=== PATIENT | female | born 1985 | race Caucasian/White ===

== ENCOUNTER 2024-09-18 20:49 | Emergency (ER) | payer BC, SELFPAY ==
[2024-09-18 20:51] VITALS: BP 135/97
[2024-09-18 22:00] VITALS: BP 129/85
[2024-09-18] MEDS: ZOFRAN 4 MG IV ×2 (22:15→23:39)
[2024-09-18] MEDS: NSS 1000 IV (22:16)
[2024-09-18 22:22] LABS: % Basophils 0.4 % (0-2); % Immature Granulocytes 0.2 % (0-0.5); % Lymphocytes 14.8 % (20.5-51.1); % Neutrophils 76.6 % (42.2-75.2); Absolute Lymphocytes 1.2 10^3/uL (1.2-3.4); Absolute Monocytes 0.7 10^3/uL (0.1-0.6); Absolute Neutrophils 6.2 10^3/uL (1.4-6.5); Hematocrit 42.7 % (37.0-47.0); Hemoglobin 14.9 g/dL (12.0-16.0); Mean Corp Hgb Conc. 34.9 g/dL (33.0-37.0); Mean Corpuscular Hgb 29.7 pg (27.0-31.0); Mean Corpuscular Volume 85.2 fL (81.0-99.0); Mean Platelet Volume 9.3 fL (7.4-10.4); Nucleated Red Blood Cells % 0 %; Platelet Count 268 10^3/uL (130-400); Red Blood Cell Count 5.01 10^6/uL (4.20-5.40); Red Cell Dist. Width 12.6 % (11.5-14.5); White Blood Cell Count 8.1 10^3/uL (4.8-10.8)
[2024-09-18 22:32] LABS: ALT (SGPT) 17 U/L (0-35); AST (SGOT) 17 U/L (14-36); Albumin 4.3 g/dl (3.5-5.0); Alkaline Phosphatase 100 U/L (38-126); Blood Urea Nitrogen 15 mg/dl (7-17); Calcium 9.1 mg/dl (8.4-10.2); Carbon Dioxide 25 mmol/L (22-30); Chloride 105 mmol/L (98-107); Glucose 99 mg/dl (70-99); Lipase 40 U/L (23-300); Potassium 3.2 mmol/L (3.5-5.1); Sodium 139 mmol/L (135-145); Total Bilirubin 0.6 mg/dl (0.2-1.3); Total Protein 7.3 g/dl (6.3-8.2); eGFR > 60.00
--- NOTE | 2024-09-18 22:38 | ED.GENMED ---
History of Present Illness
<Devang Chaves, DO - Last Filed: 09/18/24 22:39>
General
Chief Complaint: Abdominal Pain
Time Seen by Provider: 09/18/24 21:32
<Joselyn Hull, CATERING ASSOCIATE - Last Filed: 09/19/24 00:57>
General
Source: patient
Exam Limitations: none
Nursing documentation reviewed up to this point in time: agreed with
History of Present Illness
History of Present Illness:
39 yo female with no PMHX, 2020, presents for nausea, diarrhea, abdominal bloating past 4 days. Non bloody watery diarrhea. Burps 'taste horrible.' No known sick contacts.
Past History
<Joselyn Hull, CATERING ASSOCIATE - Last Filed: 09/19/24 00:57>
Past History
ED Past Medical History: None
ED Past Surgical History:
Social History
Tobacco: Non-smoker
Alcohol: Occasional
Personal:
Living: with family
Employment: Employed
Review of Systems
<Joselyn Hull, CATERING ASSOCIATE - Last Filed: 09/19/24 00:57>
Review of Systems
Allergies reviewed?: Yes
All Other Systems: ROS reviewed and negative except as documented in HPI and ROS
Constitutional: Denies chills
Respiratory: Denies trouble breathing
Cardiac: Denies chest pain
ABD/GI: Reports abdominal pain, nausea and diarrhea; Denies vomiting, bloody stools or black stools
: Denies dysuria, frequency or difficulty voiding
Musculoskeletal: Reports no symptoms
Skin: Reports no symptoms
Neurological: Reports no symptoms
Phy Exam
<Joselyn Hull, CATERING ASSOCIATE - Last Filed: 09/19/24 00:57>
Physical Exam
Physical Exam:
GENERAL: No acute distress. A&Ox3.
CONSTITUTIONAL: Afebrile.
EYES: clear, conjunctivae normal
ENMT: moist mucus membranes, Pharynx nl
RESPIRATORY: Regular respirations, nonlabored, lungs clear.
CARDIOVASCULAR: Regular rate and rhythm, no murmurs, no rubs.
GI: Soft, mild tenderness generally, normal BS
MUSCULOSKELETAL: Moves with ease. Well perfused.
SKIN: Warm, dry, pink
PSYCH: Normal mood and affect. Well kept, interactive and appropriate
NEUROLOGIC: Awake, alert and oriented. No focal neurological deficits
Course
<Devang Chaves, DO - Last Filed: 09/18/24 22:39>
Orders/Labs/Results
Orders:
Orders
09/18/24 21:55
Ondansetron Injectable [Zofran] 4 mg IV NOW STA
09/18/24 22:00
0.9% Sodium Chloride 1000 ml [Nss] 1,000 ml IV BOLUS
09/18/24 22:01
CT Abd/Pel (IV only)-DH only Urgent
Comment:
Reason For Exam: Generalized abdominal pain, diarrhea
09/18/24 22:13
Complete Blood Count/With Diff Urgent
Comprehensive Metabolic Panel Urgent
HCG, Serum Qualitative Screen Urgent
Comment: ADDED
Lipase Urgent
09/18/24 23:38
Ondansetron Injectable [Zofran] 4 mg .ROUTE .STK-MED ONE
09/18/24 23:39
Ondansetron Injectable [Zofran] 4 mg IV NOW STA
09/18/24 23:44
Add On- LAB Urgent
Tests Added?: hcg
Abnormal Lab Results
09/18/24
22:13
Absolute Monos (auto) 0.7 H 10^3/uL
(0.1-0.6)
Neutrophils % 76.6 H %
(42.2-75.2)
Lymphocytes % 14.8 L %
(20.5-51.1)
Potassium 3.2 L mmol/L
(3.5-5.1)
09/18/24 22:13
09/18/24 22:13
Vital Signs
Initial and Last Documented VS:
Initial Vital Signs
Temp Pulse Resp BP Pulse Ox
97.6 F 120 18 135/97 99
09/18/24 20:51 09/18/24 20:51 09/18/24 20:51 09/18/24 20:51 09/18/24 20:51
Last Documented Vital Signs
Temp Pulse Resp BP Pulse Ox
98.3 F 111 20 131/75 96
09/18/24 23:32 09/18/24 20:53 09/18/24 23:32 09/18/24 23:00 09/18/24 23:32
<Joselyn Hull CATERING ASSOCIATE - Last Filed: 09/19/24 00:57>
Orders/Labs/Results
Orders:
Orders
09/18/24 21:55
Ondansetron Injectable [Zofran] 4 mg IV NOW STA
09/18/24 22:00
0.9% Sodium Chloride 1000 ml [Nss] 1,000 ml IV BOLUS
09/18/24 22:01
CT Abd/Pel (IV only)-DH only Urgent
Comment:
Reason For Exam: Generalized abdominal pain, diarrhea
09/18/24 22:13
Complete Blood Count/With Diff Urgent
Comprehensive Metabolic Panel Urgent
HCG, Serum Qualitative Screen Urgent
Comment: ADDED
Lipase Urgent
09/18/24 23:38
Ondansetron Injectable [Zofran] 4 mg .ROUTE .STK-MED ONE
09/18/24 23:39
Ondansetron Injectable [Zofran] 4 mg IV NOW STA
09/18/24 23:44
Add On- LAB Urgent
Tests Added?: hcg
Abnormal Lab Results
09/18/24
22:13
Absolute Monos (auto) 0.7 H 10^3/uL
(0.1-0.6)
Neutrophils % 76.6 H %
(42.2-75.2)
Lymphocytes % 14.8 L %
(20.5-51.1)
Potassium 3.2 L mmol/L
(3.5-5.1)
09/18/24 22:13
09/18/24 22:13
Vital Signs
Initial and Last Documented VS:
Initial Vital Signs
Temp Pulse Resp BP Pulse Ox
97.6 F 120 18 135/97 99
09/18/24 20:51 09/18/24 20:51 09/18/24 20:51 09/18/24 20:51 09/18/24 20:51
Last Documented Vital Signs
Temp Pulse Resp BP Pulse Ox
98.3 F 111 20 131/75 96
09/18/24 23:32 09/18/24 20:53 09/18/24 23:32 09/18/24 23:00 09/18/24 23:32
<Joselyn Hull, CATERING ASSOCIATE - Last Filed: 09/19/24 00:57>
MDM/Problems Addressed
Differential Diagnosis Includes:
gastroenteritis viral, diverticulitis
MDM/Problems Addressed:
39 yo female with no PMHX, 2020, presents for nausea, diarrhea, abdominal bloating past 4 days. Non bloody watery diarrhea. Burps 'taste horrible.' No known sick contacts. Last diarrhea 3 hours ago. No recent antibiotic use
Afebrile, NAD
11:20 p.m.
CBC normal
CMP normal
Lipase normal
11:[address] scan abd/pelvis w IV only contrast radiology report read: IMPRESSION:
Findings of likely mild enterocolitis. There is mild gastric distention without discrete obstruction.
Normal appendix.
Scattered punctate hepatic hypodensities which are too small to accurately characterize however may represent small cysts or hemangiomas.
Findings of likely prior section.
After IVFs and Zofran feeling much better. HR 88
Results discussed with patient
After second Zofran she is feeling better
She had one liquid brown stool with some formed stool
Most likely viral gastroenteritis
Pt ambulated out with normal gait at discharge
<Joselyn Hull CATERING ASSOCIATE - Last Filed: 09/19/24 00:57>
*Critical Care Note
Total Time (30-74mins, 75-104mins- exclusive of procedures): Not Applicable
ED Attending Note
<Devang Chaves DO - Last Filed: 09/18/24 22:39>
-
Portions of this chart may have been created with voice recognition software.� Occasional wrong word or��sound alike� substitutions may have occurred due to the inherent limitations of voice recognition software.
Discharge Plan
Departure
Patient Disposition: Home (Routine Discharge)
Date of Disposition: 09/19/24
Time of Disposition: 00:01
Patient with high blood pressure during this ER visit?: No
Condition: Good
Discharge Problem:
Viral gastroenteritis
Instructions: Viral gastroenteritis in adults, Clear Liquid Diet, Nausea and Vomiting, Adult (DC)
Prescriptions:
New
ondansetron 4 mg tablet,disintegrating
4 mg PO Q8H PRN (Reason: nausea and vomiting) 4 Days Qty: 12 0RF
Referrals:
Caitlyn Jay, DO [Family Provider] - As needed
UNKNOWN - PT DOES,NOT KNOW [Unknown Provider] -
Stand Alone Forms: Return to Work
Activity Restrictions/Additional Instructions:
As we discussed, your workup today shows you have mild gastroenteritis
Your blood work is all normal
I sent a prescription to your pharmacy for Zofran to use if needed for nausea and vomiting
Clear liquid diet for 24 hours and gradually increase your diet as tolerated
See your doctor in 5 to 7 days if you are not much improved by then
Interventions
Interventions:
*Risk Screen - Suicide Last Done: 09/18/24 20:52
*Neglect/Abuse Screening Last Done: 09/18/24 20:52
*ED- Fall Risk Assessment Last Done: 09/18/24 20:52
*ED COVID-19 Vaccine History Last Done: 09/18/24 20:52
WJ-[id number]-[id number] Assessment Last Done: 09/18/24 23:30
Discharge Date and Time
Print Language: [id number]
[2024-09-18 22:56] VITALS: BP 133/74
[2024-09-18 23:00] VITALS: BP 131/75
[2024-09-18 23:30] VITALS: BMI 29.9
[2024-09-19 00:22] LABS: HCG, Serum Qualitative Screen Negative
== END 2024-09-19 00:25 | disposition home or self-care (01) ==
LOC: EMR 20:49
PROVIDERS: Registered Nurse; EMERGENCY PHYSICIAN Emergency Medicine; FAMILY PHYSICIAN Family Medicine
DX: A08.4 Viral intestinal infection, unspecified (principal)
CPT/HCPCS: 99285; 96374; 96361; 96376; 74177; 80053; 83690; 84703; 85025; Q9967